=== PATIENT | male | born 1940 | race Caucasian/White ===

== ENCOUNTER → 2019-07-31 | Outpatient (CLI) | payer OTHER ==
[2019-08-01 14:38] LABS: Stool Occult Bld Immuno 1 Positive (NEGATIVE); Stool Occult Bld Immuno 2 Positive (NEGATIVE); Stool Occult Bld Immuno 3 Positive (NEGATIVE)
== END | disposition home or self-care (01) ==
LOC: LAB EV 06:20
PROVIDERS: Family Medicine
DX: D64.9 Anemia, unspecified (principal)
CPT/HCPCS: 82274

== ENCOUNTER 2019-10-19 10:00 | Inpatient (IN) | payer OTHER ==
[~2019-10-19] VITALS: Ht 170.2 cm; Wt 63.5 kg
[~2019-10-19 10:00] MED LIST: Amlodipine Bes2.5 MG PO; Aspirin EC81 MG PO; FERSU300 PO; PIOG15 PO; Prinivil10 MG PO
--- NOTE | 2019-10-19 12:07 | NUR ---
10/19/19 1207 Pablo Miller PT COUGHING. O2 SAT DROPS TO 87%. ROBINUL 0.2 MG IV GIVEN PER ORDER. SWTICHING TO NON REBREATHER MASK. O2 UP TO 15L FOR THIS. PT O2 BACK UP TO HIGH 90S.
--- NOTE | 2019-10-19 12:37 | NUR ---
10/19/19 1237 Opal Go LATE ENTRY: PT ARRIVES TO STEP COUGHING, A VERBAL ORDER WAS GIVEN FOR A DUONEB AND IT WAS GIVEN ORDERED, LUNGS PRIOR TO UDN WERE EXP. WHHEZE IN BETWEEN COUGHING. LUNGS SOUND CLEAR FOLLOWING UDN BUT PATIENT IS STILL COUGHING. WE ARE WAITING ON ROOM ASSIGNMENT NEXT DOOR DR JOSEPH IS ADMITTING THE PATIENT FOR FURTHER EVALUATION SINCE HE WAS UNABLE TO COMPLETE THE COLONOSCOPY.
--- NOTE | 2019-10-19 13:14 | NUR ---
PT ARRIVED TO THE ROOM AT APPROXIMATELY 1255. PT ALERT AND ORIENED. HE WAS ABLE TO TRANSFER HIMSELF FROM THE GURNEY TO THE BED. VSS. WILL CONTINUE TO MONITOR.
[2019-10-19 13:53] LABS: BASOPHILS ABSOLUTE AUTO 0.03 K/mm3 (0.00-0.23); BASOPHILS PERCENT AUTO 0 % (0-2); EOSINOPHILS ABSOLUTE AUTO 0.01 K/mm3 (0.00-0.68); EOSINOPHILS PERCENT AUTO 0 % (0-6); Hematocrit 35.1 % (37.0-53.0); Hemoglobin 11.2 g/dL (13.5-17.5); IMMATURE GRAN ABSOLUTE AUTO 0.04 K/mm3 (0.00-0.10); IMMATURE GRAN PERCENT AUTO 1 % (0-1); LYMPHOCYTES ABSOLUTE AUTO 2.13 K/mm3 (0.84-5.20); LYMPHOCYTES PERCENT AUTO 29 % (21-46); MONOCYTES ABSOLUTE AUTO 0.64 K/mm3 (0.16-1.47); MONOCYTES PERCENT AUTO 9 % (4-13); Mean Corpuscular HGB 32.3 pg (26.0-34.0); Mean Corpuscular HGB Conc 31.9 g/dL (31.5-36.5); Mean Corpuscular Volume 101 fL (80-100); Mean Platelet Volume 9.9 fL (9.1-12.4); NEUTROPHILS ABSOLUTE AUTO 4.49 K/mm3 (1.96-9.15); NEUTROPHILS PERCENT AUTO 61 % (41-73); Platelet Count 230 K/mm3 (150-400); RDW Coefficient Variation 13.3 % (11.7-14.2); RDW Standard Deviation 49.5 fL (35.1-46.3); Red Blood Cell Count 3.47 M/mm3 (4.30-5.90); White Blood Cell Count 7.34 K/mm3 (4.00-11.30)
--- NOTE | 2019-10-19 14:05 | NUR ---
10/19/2019 PATIENT GAVE THIS BI DEVELOPER PERMISSION TO ASSIST WITH CARE TOMORROW 10/20/2019
[2019-10-19 14:08] LABS: Bun/Creatinine Ratio 8.3 (12.0-20.0); Creatinine, Blood 1.32 mg/dL (0.60-1.20); Potassium, Blood 3.7 mmol/L (3.5-5.5)
--- NOTE | 2019-10-19 16:45 | NUR ---
assumed care of pt, recvd report from previous RN Lexi, pt resting in room, a/o x 4, reports pain at 6/10, will medicate per mar. call light within reach, bed rails up x 2, bed in lowest position
--- NOTE | 2019-10-20 01:00 | NUR ---
RECEIVED HAND OFF AND ASSUMED CARE FROM Jaspal ELLIS RN USING SBAR. PT RESTING WITH EYES CLOSED IN SEMI FOWLERS. AAO X3, [place], FOLLOWS ALL COMMANDS. PIV IS PATENT, INFUSING NS AT 75ML/HR. DENIES PAIN, DISCOMFORT, OR FURTHER NEEDS AT THIS TIME. SAFETY MEASURES IN PLACE. WILL CONTINUE TO MONITOR.
[2019-10-20 04:53] LABS: BASOPHILS ABSOLUTE AUTO 0.03 K/mm3 (0.00-0.23); BASOPHILS PERCENT AUTO 0 % (0-2); EOSINOPHILS PERCENT AUTO 0 % (0-6); Hematocrit 33.1 % (37.0-53.0); IMMATURE GRAN ABSOLUTE AUTO 0.08 K/mm3 (0.00-0.10); IMMATURE GRAN PERCENT AUTO 0 % (0-1); LYMPHOCYTES ABSOLUTE AUTO 1.51 K/mm3 (0.84-5.20); LYMPHOCYTES PERCENT AUTO 8 % (21-46); MONOCYTES PERCENT AUTO 4 % (4-13); Mean Corpuscular HGB 32.6 pg (26.0-34.0); Mean Corpuscular HGB Conc 33.2 g/dL (31.5-36.5); NEUTROPHILS ABSOLUTE AUTO 17.13 K/mm3 (1.96-9.15); NEUTROPHILS PERCENT AUTO 88 % (41-73); Platelet Count 220 K/mm3 (150-400); RDW Coefficient Variation 13.3 % (11.7-14.2); RDW Standard Deviation 48.5 fL (35.1-46.3); Red Blood Cell Count 3.37 M/mm3 (4.30-5.90); White Blood Cell Count 19.45 K/mm3 (4.00-11.30)
[2019-10-20 05:01] LABS: Mean Corpuscular Volume 98 fL (80-100)
[2019-10-20 05:13] LABS: Calcium, Blood 8.5 mg/dL (8.5-10.1); Creatinine, Blood 1.34 mg/dL (0.60-1.20); Potassium, Blood 3.8 mmol/L (3.5-5.5)
--- NOTE | 2019-10-20 06:49 | NUR ---
SHIFT SUMMARY PT RESTING WITH EYES CLOSED IN SEMI FOWLERS. AAO X3, DEL CAST[place], FOLLOWS ALL COMMANDS. PIV IS PATENT, INFUSING NS AT 75ML/HR. DENIES PAIN, DISCOMFORT, OR FURTHER NEEDS AT THIS TIME. SAFETY MEASURES IN PLACE. WILL CONTINUE TO MONITOR.
--- NOTE | 2019-10-20 18:20 | NUR ---
SHIFT SUMMARY PT HAS DONE WELL TODAY. DIET ADVANCED TO FULL LQ AND TOLERATING WELL. DENIES PAIN OR NAUSEA. UP MOVING WELL IN ROOM. HOPEFUL TO D/C TOMORROW.
[2019-10-21 04:49] LABS: BASOPHILS ABSOLUTE AUTO 0.03 K/mm3 (0.00-0.23); BASOPHILS PERCENT AUTO 0 % (0-2); EOSINOPHILS PERCENT AUTO 0 % (0-6); Hematocrit 33.7 % (37.0-53.0); IMMATURE GRAN ABSOLUTE AUTO 0.33 K/mm3 (0.00-0.10); IMMATURE GRAN PERCENT AUTO 1 % (0-1); LYMPHOCYTES ABSOLUTE AUTO 1.19 K/mm3 (0.84-5.20); LYMPHOCYTES PERCENT AUTO 5 % (21-46); MONOCYTES ABSOLUTE AUTO 0.62 K/mm3 (0.16-1.47); MONOCYTES PERCENT AUTO 3 % (4-13); Mean Corpuscular HGB 32.4 pg (26.0-34.0); Mean Corpuscular HGB Conc 32.6 g/dL (31.5-36.5); Mean Corpuscular Volume 99 fL (80-100); Mean Platelet Volume 10.2 fL (9.1-12.4); NEUTROPHILS ABSOLUTE AUTO 21.36 K/mm3 (1.96-9.15); NEUTROPHILS PERCENT AUTO 91 % (41-73); Platelet Count 213 K/mm3 (150-400); RDW Coefficient Variation 13.6 % (11.7-14.2); RDW Standard Deviation 49.7 fL (35.1-46.3); White Blood Cell Count 23.53 K/mm3 (4.00-11.30)
--- NOTE | 2019-10-21 04:57 | NUR ---
SHIFT SUMMARY PT RESTING WITH EYES OPEN IN SEMI FOWLERS. AAO X3, DEL CASTILLO, FOLLOWS ALL COMMANDS. PIV IS PATENT, DRESSING CHANGED DUE TO MILD LEAKAGE AT SITE, TOLERATED WELL DENIES PAIN, DISCOMFORT, OR FURTHER NEEDS AT THIS TIME. SAFETY MEASURES IN PLACE. WILL GIVE HAND OFF TO ONCOMING SHIFT USING SBAR.
[2019-10-21 05:07] LABS: Bun/Creatinine Ratio 14.7 (12.0-20.0); Calcium, Blood 8.8 mg/dL (8.5-10.1); Creatinine, Blood 1.29 mg/dL (0.60-1.20); Potassium, Blood 3.7 mmol/L (3.5-5.5)
[2019-10-21] MEDS ORDERED: CIPR500 PO (10:17)
[2019-10-21] MEDS ORDERED: METR500 PO (10:18)
--- NOTE | 2019-10-21 11:10 | NUR ---
1100 diwscharged home with his son
== END 2019-10-21 11:00 | disposition home or self-care (01) | DRG 395 ==
LOC: ORSCSDS 10:00 → SURS 13:16 → ORSCSDS 13:29 → SURS 13:29
PROVIDERS: Student in an Organized Health Care Education/Training Program; Surgery; ADMIT Internal Medicine
PROC: 0DBP8ZZ Excision of Rectum, Via Natural or Artificial Opening Endoscopic (ICD-10-PCS; principal; 2019-10-19 11:30)
DX: K91.81 Other intraoperative complications of digestive system (principal); E11.9 Type 2 diabetes mellitus without complications; I12.9 Hypertensive chronic kidney disease with stage 1 through stage 4 chronic kidney disease, or unspecified chronic kidney disease; D50.9 Iron deficiency anemia, unspecified; F17.210 Nicotine dependence, cigarettes, uncomplicated; K64.4 Residual hemorrhoidal skin tags; J44.9 Chronic obstructive pulmonary disease, unspecified; Y83.8 Other surgical procedures as the cause of abnormal reaction of the patient, or of later complication, without mention of misadventure at the time of the procedure; Y92.234 Operating room of hospital as the place of occurrence of the external cause; Z79.84 Long term (current) use of oral hypoglycemic drugs; Z79.82 Long term (current) use of aspirin
CPT/HCPCS: 36415; 74177; 80048; 82947; 85025; 88305; 96365; 96366; 96367; 96375; 96376; G0378; J0744; J2405; J2704; J3010; J7030; J7040; J7120; Q9967

== ENCOUNTER 2019-10-23 10:52 | Inpatient (IN) | payer OTHER ==
[~2019-10-23] VITALS: Ht 167.6 cm; Wt 62.6 kg
[~2019-10-23 10:52] MED LIST changes: +CIPR500 PO; +METR500 PO
[2019-10-23 12:13] LABS: BASOPHILS ABSOLUTE AUTO 0.02 K/mm3 (0.00-0.23); BASOPHILS PERCENT AUTO 0 % (0-2); EOSINOPHILS PERCENT AUTO 0 % (0-6); Hematocrit 35.1 % (37.0-53.0); Hemoglobin 11.8 g/dL (13.5-17.5); IMMATURE GRAN ABSOLUTE AUTO 0.14 K/mm3 (0.00-0.10); IMMATURE GRAN PERCENT AUTO 1 % (0-1); LYMPHOCYTES ABSOLUTE AUTO 0.84 K/mm3 (0.84-5.20); LYMPHOCYTES PERCENT AUTO 4 % (21-46); MONOCYTES ABSOLUTE AUTO 0.95 K/mm3 (0.16-1.47); MONOCYTES PERCENT AUTO 5 % (4-13); Mean Corpuscular HGB 32.7 pg (26.0-34.0); Mean Corpuscular HGB Conc 33.6 g/dL (31.5-36.5); Mean Corpuscular Volume 97 fL (80-100); Mean Platelet Volume 10.2 fL (9.1-12.4); NEUTROPHILS ABSOLUTE AUTO 17.74 K/mm3 (1.96-9.15); NEUTROPHILS PERCENT AUTO 90 % (41-73); Platelet Count 238 K/mm3 (150-400); RDW Coefficient Variation 13.5 % (11.7-14.2); RDW Standard Deviation 48.2 fL (35.1-46.3); Red Blood Cell Count 3.61 M/mm3 (4.30-5.90); White Blood Cell Count 19.69 K/mm3 (4.00-11.30)
[2019-10-23 12:30] LABS: Albumin, Blood 2.6 g/dL (3.4-5.0); Albumin/Globulin Ratio 0.7 (0.8-1.8); Bilirubin, Total 0.3 mg/dL (0.1-1.0); Bun/Creatinine Ratio 23.7 (12.0-20.0); Calcium, Blood 9.4 mg/dL (8.5-10.1); Creatinine, Blood 1.39 mg/dL (0.60-1.20); Globulin, Blood 3.9 g/dL (2.2-4.0); Potassium, Blood 3.8 mmol/L (3.5-5.5); Total Protein, Blood 6.5 g/dL (6.4-8.2)
[2019-10-23] MEDS ORDERED: AMLODIPINE BES2.5 MG PO (13:42)
[2019-10-23] MEDS ORDERED: PRINIVIL10 MG PO (13:42)
[2019-10-23] MEDS ORDERED: LISI20 PO (13:42)
[2019-10-24 04:10] LABS: BASOPHILS ABSOLUTE AUTO 0.02 K/mm3 (0.00-0.23); BASOPHILS PERCENT AUTO 0 % (0-2); EOSINOPHILS ABSOLUTE AUTO 0.01 K/mm3 (0.00-0.68); EOSINOPHILS PERCENT AUTO 0 % (0-6); Hematocrit 32.7 % (37.0-53.0); Hemoglobin 10.6 g/dL (13.5-17.5); IMMATURE GRAN ABSOLUTE AUTO 0.12 K/mm3 (0.00-0.10); IMMATURE GRAN PERCENT AUTO 1 % (0-1); LYMPHOCYTES ABSOLUTE AUTO 1.22 K/mm3 (0.84-5.20); LYMPHOCYTES PERCENT AUTO 10 % (21-46); MONOCYTES ABSOLUTE AUTO 0.93 K/mm3 (0.16-1.47); MONOCYTES PERCENT AUTO 7 % (4-13); Mean Corpuscular HGB 31.7 pg (26.0-34.0); Mean Corpuscular HGB Conc 32.4 g/dL (31.5-36.5); Mean Corpuscular Volume 98 fL (80-100); Mean Platelet Volume 9.6 fL (9.1-12.4); NEUTROPHILS PERCENT AUTO 82 % (41-73); Platelet Count 228 K/mm3 (150-400); RDW Coefficient Variation 13.7 % (11.7-14.2); Red Blood Cell Count 3.34 M/mm3 (4.30-5.90)
--- NOTE | 2019-10-24 04:11 | NUR ---
SHIFT SUMMARY PT AA0X4 VSS. PT DENIES NAUSEA AND PAIN. NG TUBE DRAINING GREEN BROWN LIQUID. PT IND/SBY. IS UP AND VOIDING. PT HAS BEEN NPO SINCE MIDNIGHT, HYPOACTIVE BOWEL SOUNDS. PT CALLING APPROPRIATLY, CALL LIGHT IN REACH.
[2019-10-24 04:28] LABS: Bun/Creatinine Ratio 20.6 (12.0-20.0); Calcium, Blood 8.3 mg/dL (8.5-10.1); Creatinine, Blood 1.31 mg/dL (0.60-1.20); Potassium, Blood 3.4 mmol/L (3.5-5.5)
--- NOTE | 2019-10-24 15:12 | NUR ---
SHIFT SUMMARY PT HAS BEEN SLEEPY TODAY BUT DOES WELL AMBULATING WITH ASSISTANCE IN HALLWAYS. NGT CONTINUES TO HAVE MODERATE OUTPUT, GREEN. NO FLATUS OR BMS.
[2019-10-25 04:12] LABS: BASOPHILS ABSOLUTE AUTO 0.04 K/mm3 (0.00-0.23); BASOPHILS PERCENT AUTO 0 % (0-2); EOSINOPHILS ABSOLUTE AUTO 0.02 K/mm3 (0.00-0.68); EOSINOPHILS PERCENT AUTO 0 % (0-6); Hematocrit 34.5 % (37.0-53.0); Hemoglobin 11.1 g/dL (13.5-17.5); IMMATURE GRAN ABSOLUTE AUTO 0.18 K/mm3 (0.00-0.10); IMMATURE GRAN PERCENT AUTO 2 % (0-1); LYMPHOCYTES ABSOLUTE AUTO 1.73 K/mm3 (0.84-5.20); LYMPHOCYTES PERCENT AUTO 15 % (21-46); MONOCYTES ABSOLUTE AUTO 1.08 K/mm3 (0.16-1.47); MONOCYTES PERCENT AUTO 9 % (4-13); Mean Corpuscular HGB 31.9 pg (26.0-34.0); Mean Corpuscular HGB Conc 32.2 g/dL (31.5-36.5); Mean Corpuscular Volume 99 fL (80-100); Mean Platelet Volume 10.4 fL (9.1-12.4); NEUTROPHILS ABSOLUTE AUTO 8.92 K/mm3 (1.96-9.15); NEUTROPHILS PERCENT AUTO 75 % (41-73); Platelet Count 253 K/mm3 (150-400); RDW Coefficient Variation 13.8 % (11.7-14.2); RDW Standard Deviation 50.6 fL (35.1-46.3); Red Blood Cell Count 3.48 M/mm3 (4.30-5.90); White Blood Cell Count 11.97 K/mm3 (4.00-11.30)
--- NOTE | 2019-10-25 04:35 | NUR ---
SHIFT SUMMARY AA0X4 VSS, PT DENIED PAIN AND NAUSEA DURING SHIFT. PT USING URINAL TO VOID. DENIES PASSING FLATUS. NG TUBE PATENT AND DRAINING GREEN LIQUID. IV FLUIDS INFUSING DURING SHIFT.
[2019-10-25 04:37] LABS: Magnesium, Blood 1.9 mg/dL (1.6-2.4)
[2019-10-25 04:38] LABS: Anion Gap 4 mmol/L (6-16); Blood Urea Nitrogen 17 mg/dL (8-24); Bun/Creatinine Ratio 14.3 (12.0-20.0); CO2, Blood 31 mmol/L (21-32); Calcium, Blood 8.3 mg/dL (8.5-10.1); Chloride, Blood 107 mmol/L (98-108); Creatinine, Blood 1.19 mg/dL (0.60-1.20); Glomerular Filtration Rate >60 (60-); Glucose, Blood 137 mg/dL (70-99); Phosphorus, Blood 1.7 mg/dL (2.5-4.9); Potassium, Blood 3.5 mmol/L (3.5-5.5); Sodium, Blood 142 mmol/L (136-145)
--- NOTE | 2019-10-25 08:37 | NUR ---
OOB TO CHAIR, DENIES ANY PAIN OR NAUSEA, NGT INTACT CONT. TO DRAIN BRIGHT GREEN DRAINAGE, DR. WETZEL HERE TO SEE PT, PT GOING TO XRAY.
--- NOTE | 2019-10-25 19:15 | NUR ---
RESTING IN BED, DENIED ANY PAIN OR NAUSEA OR ANY ABD DISCOMFORT TODAY, NO ACUTE CHANGES THIS SHIFT.
[2019-10-26 04:05] LABS: BASOPHILS ABSOLUTE AUTO 0.03 K/mm3 (0.00-0.23); BASOPHILS PERCENT AUTO 0 % (0-2); EOSINOPHILS ABSOLUTE AUTO 0.04 K/mm3 (0.00-0.68); EOSINOPHILS PERCENT AUTO 0 % (0-6); Hemoglobin 11.2 g/dL (13.5-17.5); IMMATURE GRAN ABSOLUTE AUTO 0.19 K/mm3 (0.00-0.10); IMMATURE GRAN PERCENT AUTO 2 % (0-1); LYMPHOCYTES ABSOLUTE AUTO 2.14 K/mm3 (0.84-5.20); LYMPHOCYTES PERCENT AUTO 20 % (21-46); MONOCYTES ABSOLUTE AUTO 1.13 K/mm3 (0.16-1.47); MONOCYTES PERCENT AUTO 10 % (4-13); Mean Corpuscular HGB 32.2 pg (26.0-34.0); Mean Corpuscular HGB Conc 32.9 g/dL (31.5-36.5); Mean Corpuscular Volume 98 fL (80-100); Mean Platelet Volume 9.5 fL (9.1-12.4); NEUTROPHILS ABSOLUTE AUTO 7.45 K/mm3 (1.96-9.15); NEUTROPHILS PERCENT AUTO 68 % (41-73); Platelet Count 248 K/mm3 (150-400); RDW Coefficient Variation 13.8 % (11.7-14.2); RDW Standard Deviation 49.9 fL (35.1-46.3); Red Blood Cell Count 3.48 M/mm3 (4.30-5.90); White Blood Cell Count 10.98 K/mm3 (4.00-11.30)
[2019-10-26 04:20] LABS: Anion Gap 3 mmol/L (6-16); Blood Urea Nitrogen 18 mg/dL (8-24); Bun/Creatinine Ratio 15.4 (12.0-20.0); CO2, Blood 32 mmol/L (21-32); Calcium, Blood 8.3 mg/dL (8.5-10.1); Chloride, Blood 106 mmol/L (98-108); Creatinine, Blood 1.17 mg/dL (0.60-1.20); Glomerular Filtration Rate >60 (60-); Glucose, Blood 128 mg/dL (70-99); Phosphorus, Blood 3.1 mg/dL (2.5-4.9); Potassium, Blood 3.6 mmol/L (3.5-5.5); Sodium, Blood 141 mmol/L (136-145)
--- NOTE | 2019-10-26 06:07 | NUR ---
PT OUT TO RADIOLOGY. NO C/O NAUSEA.NG CAPPED FOR TRANSPORT.IV SL FOR TRANSPORT WITH GOOD BLOOD RETURN.
--- NOTE | 2019-10-27 06:11 | NUR ---
PT TO XRAY VIA WHEELCHAIR
[2019-10-27 06:17] LABS: BASOPHILS ABSOLUTE AUTO 0.04 K/mm3 (0.00-0.23); BASOPHILS PERCENT AUTO 0 % (0-2); EOSINOPHILS ABSOLUTE AUTO 0.01 K/mm3 (0.00-0.68); EOSINOPHILS PERCENT AUTO 0 % (0-6); Hematocrit 37.4 % (37.0-53.0); Hemoglobin 12.1 g/dL (13.5-17.5); IMMATURE GRAN ABSOLUTE AUTO 0.19 K/mm3 (0.00-0.10); IMMATURE GRAN PERCENT AUTO 2 % (0-1); LYMPHOCYTES ABSOLUTE AUTO 1.64 K/mm3 (0.84-5.20); LYMPHOCYTES PERCENT AUTO 16 % (21-46); MONOCYTES ABSOLUTE AUTO 0.98 K/mm3 (0.16-1.47); MONOCYTES PERCENT AUTO 10 % (4-13); Mean Corpuscular HGB 31.5 pg (26.0-34.0); Mean Corpuscular HGB Conc 32.4 g/dL (31.5-36.5); Mean Corpuscular Volume 97 fL (80-100); Mean Platelet Volume 10.3 fL (9.1-12.4); NEUTROPHILS ABSOLUTE AUTO 7.32 K/mm3 (1.96-9.15); NEUTROPHILS PERCENT AUTO 72 % (41-73); Platelet Count 320 K/mm3 (150-400); RDW Coefficient Variation 13.8 % (11.7-14.2); RDW Standard Deviation 48.9 fL (35.1-46.3); Red Blood Cell Count 3.84 M/mm3 (4.30-5.90); White Blood Cell Count 10.18 K/mm3 (4.00-11.30)
--- NOTE | 2019-10-27 06:20 | NUR ---
SHIFT SUMMARY NG IN PLACE AND DRAINING GREEN FLUID. PT HAD 2 EPISODES OF N/V AND ONE LOOSE BM DURING SHIFT. AMBULATED TO BATHROOM TWICE WITH SBA, USES URINAL PRN. DENIED PAIN OR DISCOMFORT T/O NIGHT. XRAY COMPLETED. ENCOURAGED DEEP BREATHING, COUGHING. IS CURRENTLY RESTING IN BED WITH CALL LIGHT IN REACH. WILL CONT. MONITOR AND GIVE BEDSIDE REPORT TO ONCOMING RN.
[2019-10-27 06:41] LABS: Bun/Creatinine Ratio 22.1 (12.0-20.0); Creatinine, Blood 1.4 mg/dL (0.60-1.20); Potassium, Blood 3.8 mmol/L (3.5-5.5)
--- NOTE | 2019-10-27 12:20 | NUR ---
PT NG CLAMPED, IV ABX PAUSED, PT UP TO WC AND TO IMAGING DEPT FOR CT.
--- NOTE | 2019-10-27 14:38 | NUR ---
PATIENT GAVE PERMISSION TO THIS STUDENT TO PROVIDE CARE TODAY
--- NOTE | 2019-10-27 14:42 | NUR ---
Permission for care given to skilled nursing facilities professional by timothy 10/27/2019.
--- NOTE | 2019-10-27 15:48 | NUR ---
SHIFT SUMMARY PT LEFT ROOM TO GO TO OR AT 1430. A&OX4, VSS, NG TUBE DRAINING GREEN FLUID, 1900 MLS OUT THIS SHIFT. 18G IV, CLINIMIX AND SCHEDULED ABX. AMB INDEPENDENT TO BRP ONCE UNHOOKED FROM IV & NG. WILL REPORT TO ONCOMING NOC RN.
--- NOTE | 2019-10-27 16:29 | NUR ---
Patient up to Ambulate independently. Gait steady. Surgical site prepped with 2% Chlorhexidine cloth wipe. History, Chart, Medications and Allergies reviewed before start of procedure.Lungs WITH EXPIRATORY WHEEZES. PT DOES NOT FEEL SOB. O2SATS WNL. Patient confirms NPO status and agrees with scheduled surgery. SON MISAEL AT BEDSIDE. WILL ASK ANESTHESIA FOR UDN TX. ABX RECEIVED FROM SURG FLOOR. REPORT GIVEN TO MATTHIAS QUIJANO RN.
--- NOTE | 2019-10-27 20:27 | NUR ---
TRANSFER FROM PCU: REPORT WAS RECIEVED AND PATIENT IS BROUGHT TO UNIT VIA STRETCHER. A&O X4 VS ARE STABLE, NO REPORTS OF PAIN.
[2019-10-28 05:26] LABS: BASOPHILS ABSOLUTE AUTO 0.05 K/mm3 (0.00-0.23); BASOPHILS PERCENT AUTO 0 % (0-2); EOSINOPHILS ABSOLUTE AUTO 0.01 K/mm3 (0.00-0.68); EOSINOPHILS PERCENT AUTO 0 % (0-6); Hematocrit 34.3 % (37.0-53.0); Hemoglobin 11.2 g/dL (13.5-17.5); IMMATURE GRAN ABSOLUTE AUTO 0.15 K/mm3 (0.00-0.10); IMMATURE GRAN PERCENT AUTO 1 % (0-1); LYMPHOCYTES ABSOLUTE AUTO 1.48 K/mm3 (0.84-5.20); LYMPHOCYTES PERCENT AUTO 10 % (21-46); MONOCYTES ABSOLUTE AUTO 0.82 K/mm3 (0.16-1.47); MONOCYTES PERCENT AUTO 6 % (4-13); Mean Corpuscular HGB 32.4 pg (26.0-34.0); Mean Corpuscular HGB Conc 32.7 g/dL (31.5-36.5); Mean Corpuscular Volume 99 fL (80-100); Mean Platelet Volume 10.4 fL (9.1-12.4); NEUTROPHILS ABSOLUTE AUTO 12.27 K/mm3 (1.96-9.15); NEUTROPHILS PERCENT AUTO 83 % (41-73); Platelet Count 332 K/mm3 (150-400); RDW Coefficient Variation 14.1 % (11.7-14.2); RDW Standard Deviation 51.5 fL (35.1-46.3); Red Blood Cell Count 3.46 M/mm3 (4.30-5.90); White Blood Cell Count 14.78 K/mm3 (4.00-11.30)
--- NOTE | 2019-10-28 05:45 | NUR ---
SHIFT SUMMARY: PATIENT IS A&OX4, POST OP VS ARE STABLE, 1L 02 IS ON TO MAINTAIN SATS ABOVE 90%. PAIN IS MINIMAL AND WELL CONTROLED WITH ONE DOSE OF IV DILAUDID. NG PUT OUT 40MLS OF A GREEN DRAINAGE. PATIENT IS ABLE TO STAND AT THE BEDSIDE TO VOID WITH ASSIST OF TWO FOR SAFETY, BED ALARM IS ON.
[2019-10-28 05:52] LABS: Bun/Creatinine Ratio 23.7 (12.0-20.0); Calcium, Blood 8.1 mg/dL (8.5-10.1); Creatinine, Blood 1.56 mg/dL (0.60-1.20); Potassium, Blood 3.7 mmol/L (3.5-5.5)
--- NOTE | 2019-10-28 11:38 | NUR ---
10/28/19 1138 Nellie Osorio VERIFICATIONS, AUDITS.
--- NOTE | 2019-10-28 14:00 | NUR ---
Permission for care given to clinical nursing intern by patient.
--- NOTE | 2019-10-28 19:35 | NUR ---
SUMMARY: PT IS POD1 LYSIS OF ADHESIONS. NO ACUTE CHANGE TODAY. NGT TO LIS, MINIMAL OUT. DENIES PASSING GAS, NO BM. NO COMPLAINT FOR PAIN/NAUSEA TODAY. SURGICAL SITES WNL, MINIMAL DRAINAGE FROM STEW. NO ACUTE SAFETY CONCERNS, WILL REPORT TO NOC RN
--- NOTE | 2019-10-29 04:36 | NUR ---
SHIFT SUMMARY POD 2. AA0X4, VSS. PT DENIES PASSING GAS. NG TUBE PATENT AND DRAINING BROWN LIQUID. STEW PATENT AND DRAINING SS DRAINAGE. GAUZE IN PLACE CDI. DENIES PAIN AND NAUSEA DURING SHIFT. PT APPEARED MORE WITHDRAWN DURING SHIFT, PT FAMILY REPORTED WELL. TOLERATING ICE CHIPS DURING SHIFT.
[2019-10-29 05:04] LABS: BASOPHILS ABSOLUTE AUTO 0.02 K/mm3 (0.00-0.23); BASOPHILS PERCENT AUTO 0 % (0-2); EOSINOPHILS ABSOLUTE AUTO 0.06 K/mm3 (0.00-0.68); EOSINOPHILS PERCENT AUTO 1 % (0-6); Hemoglobin 10.5 g/dL (13.5-17.5); IMMATURE GRAN ABSOLUTE AUTO 0.06 K/mm3 (0.00-0.10); IMMATURE GRAN PERCENT AUTO 1 % (0-1); LYMPHOCYTES ABSOLUTE AUTO 1.28 K/mm3 (0.84-5.20); LYMPHOCYTES PERCENT AUTO 15 % (21-46); MONOCYTES ABSOLUTE AUTO 0.71 K/mm3 (0.16-1.47); MONOCYTES PERCENT AUTO 8 % (4-13); Mean Corpuscular HGB 31.7 pg (26.0-34.0); Mean Corpuscular HGB Conc 31.8 g/dL (31.5-36.5); Mean Corpuscular Volume 100 fL (80-100); NEUTROPHILS ABSOLUTE AUTO 6.28 K/mm3 (1.96-9.15); NEUTROPHILS PERCENT AUTO 75 % (41-73); Platelet Count 304 K/mm3 (150-400); RDW Coefficient Variation 13.9 % (11.7-14.2); Red Blood Cell Count 3.31 M/mm3 (4.30-5.90); White Blood Cell Count 8.41 K/mm3 (4.00-11.30)
[2019-10-29 05:31] LABS: Albumin, Blood 1.8 g/dL (3.4-5.0); Anion Gap 4 mmol/L (6-16); Blood Urea Nitrogen 33 mg/dL (8-24); Bun/Creatinine Ratio 23.6 (12.0-20.0); CO2, Blood 31 mmol/L (21-32); Calcium, Blood 8.1 mg/dL (8.5-10.1); Chloride, Blood 108 mmol/L (98-108); Glomerular Filtration Rate 52 (60-); Glucose, Blood 120 mg/dL (70-99); Magnesium, Blood 2.3 mg/dL (1.6-2.4); Phosphorus, Blood 2.5 mg/dL (2.5-4.9); Potassium, Blood 3.9 mmol/L (3.5-5.5); Sodium, Blood 143 mmol/L (136-145)
--- NOTE | 2019-10-29 07:56 | NUR ---
PT REFUSED TO GET UP TO THE CHAIR AT THIS TIME
--- NOTE | 2019-10-29 19:27 | NUR ---
SUMMARY: NO CHANGE TODAY. MINIMAL OUT OF STEW AND NGT. PT IN BETTER SPIRITS TODAY. ABLE TO TAKE 3 WALKS IN BERNAL, SBA WITH FWW. PT DID WELL. NO COMPLIANT OF PAIN OR NAUSEA. NO REPORT OF GAS OR BM. REPORT GIVEN TO LU HASTINGS RN.
[2019-10-30 05:02] LABS: BASOPHILS ABSOLUTE AUTO 0.02 K/mm3 (0.00-0.23); BASOPHILS PERCENT AUTO 0 % (0-2); EOSINOPHILS ABSOLUTE AUTO 0.06 K/mm3 (0.00-0.68); EOSINOPHILS PERCENT AUTO 0 % (0-6); Hematocrit 33.9 % (37.0-53.0); Hemoglobin 10.9 g/dL (13.5-17.5); IMMATURE GRAN ABSOLUTE AUTO 0.11 K/mm3 (0.00-0.10); IMMATURE GRAN PERCENT AUTO 1 % (0-1); LYMPHOCYTES ABSOLUTE AUTO 1.39 K/mm3 (0.84-5.20); LYMPHOCYTES PERCENT AUTO 10 % (21-46); MONOCYTES ABSOLUTE AUTO 1.02 K/mm3 (0.16-1.47); MONOCYTES PERCENT AUTO 8 % (4-13); Mean Corpuscular HGB 31.6 pg (26.0-34.0); Mean Corpuscular HGB Conc 32.2 g/dL (31.5-36.5); Mean Corpuscular Volume 98 fL (80-100); Mean Platelet Volume 10.3 fL (9.1-12.4); NEUTROPHILS ABSOLUTE AUTO 10.85 K/mm3 (1.96-9.15); NEUTROPHILS PERCENT AUTO 81 % (41-73); Platelet Count 319 K/mm3 (150-400); RDW Coefficient Variation 13.8 % (11.7-14.2); RDW Standard Deviation 49.9 fL (35.1-46.3); Red Blood Cell Count 3.45 M/mm3 (4.30-5.90); White Blood Cell Count 13.45 K/mm3 (4.00-11.30)
--- NOTE | 2019-10-30 05:22 | NUR ---
SHIFT SUMMARY POD 3 AA0X4, VSS. SITES ARE CDI, STEW DRAIN PINK SANGUINOUS DRAINAGE. BULB COMPRESSED. PT HAS BEEN PASSING GAS SINCE MIDNIGHT AND HAS HAD 2 EXTRA LARGE LOOSE STOOLS. PT IND/SBY IN ROOM. DENIES PAIN AND NAUSEA. NG TUBE HAS HAD NO OUTPUT, BALANCED WITH ICE CHIPS HE HAS TAKEN IN. PT VOIDING IN URINAL.
[2019-10-30 05:33] LABS: Albumin, Blood 1.9 g/dL (3.4-5.0); Anion Gap 4 mmol/L (6-16); Blood Urea Nitrogen 35 mg/dL (8-24); Bun/Creatinine Ratio 24.6 (12.0-20.0); CO2, Blood 29 mmol/L (21-32); Calcium, Blood 8.4 mg/dL (8.5-10.1); Chloride, Blood 107 mmol/L (98-108); Creatinine, Blood 1.42 mg/dL (0.60-1.20); Glomerular Filtration Rate 51 (60-); Glucose, Blood 130 mg/dL (70-99); Phosphorus, Blood 2.6 mg/dL (2.5-4.9); Potassium, Blood 3.9 mmol/L (3.5-5.5); Sodium, Blood 140 mmol/L (136-145)
--- NOTE | 2019-10-30 18:07 | NUR ---
SUMMARY PATIENT HAS DENIED NEED FOR PAIN MED THIS SHIFT. PT AMBULATING IN ROOM AND HALLWAY-STEADY ON FEET. STEW WITH FAINT PINK TINGED DRAINAGE. PT JOANNA CLEAR LIQUID WITHOUT NAUSEA. PATIENT HAS HAD LIQUID DK GREEN/BROWN STOOLS
[2019-10-31 04:45] LABS: BASOPHILS ABSOLUTE AUTO 0.03 K/mm3 (0.00-0.23); BASOPHILS PERCENT AUTO 0 % (0-2); EOSINOPHILS ABSOLUTE AUTO 0.07 K/mm3 (0.00-0.68); EOSINOPHILS PERCENT AUTO 1 % (0-6); Hematocrit 33.3 % (37.0-53.0); Hemoglobin 10.7 g/dL (13.5-17.5); IMMATURE GRAN ABSOLUTE AUTO 0.11 K/mm3 (0.00-0.10); IMMATURE GRAN PERCENT AUTO 1 % (0-1); LYMPHOCYTES ABSOLUTE AUTO 1.52 K/mm3 (0.84-5.20); LYMPHOCYTES PERCENT AUTO 13 % (21-46); MONOCYTES ABSOLUTE AUTO 1.05 K/mm3 (0.16-1.47); MONOCYTES PERCENT AUTO 9 % (4-13); Mean Corpuscular HGB 31.6 pg (26.0-34.0); Mean Corpuscular HGB Conc 32.1 g/dL (31.5-36.5); Mean Corpuscular Volume 98 fL (80-100); Mean Platelet Volume 10.4 fL (9.1-12.4); NEUTROPHILS ABSOLUTE AUTO 9.27 K/mm3 (1.96-9.15); NEUTROPHILS PERCENT AUTO 77 % (41-73); Platelet Count 314 K/mm3 (150-400); RDW Coefficient Variation 13.7 % (11.7-14.2); RDW Standard Deviation 50.5 fL (35.1-46.3); Red Blood Cell Count 3.39 M/mm3 (4.30-5.90); White Blood Cell Count 12.05 K/mm3 (4.00-11.30)
--- NOTE | 2019-10-31 04:59 | NUR ---
Patient is independent in the room. voiding, drinking, passing gas. abd is soft with mild destention, Peg tube is draining serous fluid. dressings are dry with minimal amounts of old drainage. no acute changes over the shift. patient stated that he did sleep 2-4 hours at a time.
[2019-10-31 05:05] LABS: Bun/Creatinine Ratio 20.4 (12.0-20.0); Calcium, Blood 8.5 mg/dL (8.5-10.1); Creatinine, Blood 1.62 mg/dL (0.60-1.20); Potassium, Blood 3.6 mmol/L (3.5-5.5)
--- NOTE | 2019-10-31 16:10 | NUR ---
SHIFT SUMMARY PT A&OX4, VSS, POD3 LAP/CLAUDIA/STEW L SIDE W/SEROUS DRAINAGE. DENIES PAIN. DENIES N&V, JOANNA REGULAR ADULT DIET. AMBULATION W/GB & SBA IN ROOM TO BRP, UP IN HALLWAY, UP TO CHAIR FOR MEALS. TCDB & I.S. EDU & ENC, PT DEMONSTRATED, LUNGS CLEAR. VOIDING WELL, BM X1 TODAY. IV ABX SCHEDULED PER EMAR. WILL REPORT TO ONCOMING NOC RN.
--- NOTE | 2019-11-01 04:57 | NUR ---
Patient wakes easily and felt that he slept well. He is passing gas, voiding and eating. independent in the room. quan drain in place with scant amount of serous fluid. no acute changes.
[2019-11-01 10:36] LABS: BASOPHILS ABSOLUTE AUTO 0.03 K/mm3 (0.00-0.23); BASOPHILS PERCENT AUTO 0 % (0-2); EOSINOPHILS ABSOLUTE AUTO 0.03 K/mm3 (0.00-0.68); EOSINOPHILS PERCENT AUTO 0 % (0-6); Hematocrit 35.8 % (37.0-53.0); Hemoglobin 11.5 g/dL (13.5-17.5); IMMATURE GRAN ABSOLUTE AUTO 0.15 K/mm3 (0.00-0.10); IMMATURE GRAN PERCENT AUTO 1 % (0-1); LYMPHOCYTES ABSOLUTE AUTO 1.91 K/mm3 (0.84-5.20); LYMPHOCYTES PERCENT AUTO 12 % (21-46); MONOCYTES ABSOLUTE AUTO 0.72 K/mm3 (0.16-1.47); MONOCYTES PERCENT AUTO 5 % (4-13); Mean Corpuscular HGB 32.1 pg (26.0-34.0); Mean Corpuscular HGB Conc 32.1 g/dL (31.5-36.5); Mean Corpuscular Volume 100 fL (80-100); Mean Platelet Volume 10.4 fL (9.1-12.4); NEUTROPHILS ABSOLUTE AUTO 12.89 K/mm3 (1.96-9.15); NEUTROPHILS PERCENT AUTO 82 % (41-73); Platelet Count 430 K/mm3 (150-400); RDW Coefficient Variation 13.6 % (11.7-14.2); RDW Standard Deviation 50.4 fL (35.1-46.3); Red Blood Cell Count 3.58 M/mm3 (4.30-5.90); White Blood Cell Count 15.73 K/mm3 (4.00-11.30)
[2019-11-01 10:56] LABS: Bun/Creatinine Ratio 19.9 (12.0-20.0); Calcium, Blood 8.7 mg/dL (8.5-10.1); Creatinine, Blood 1.61 mg/dL (0.60-1.20); Potassium, Blood 2.8 mmol/L (3.5-5.5)
--- NOTE | 2019-11-01 16:05 | NUR ---
SHIFT SUMMARY PT A&OX4, VSS, POD5 LAP CLAUDIA W/STEW - SM AMT SEROUS DRAINAGE. ABX ZOSYN INFUSING PER EMAR ORDERS; KCL INFUSING 100 MLS/HR W/LABS TO FOLLOW IN AM. VOIDING WELL. THREE BM'S THIS SHIFT. AMBULATING IN HALLWAY WITH 1 SBA & GB, INDEPENDENT TO BRP, UP TO CHAIR FOR MEALS. DENIES PAIN. JOANNA REG ADULT DIET W/O C/O N&V. WILL REPORT TO ONCOMING LU LLANOS.
[2019-11-02 04:21] LABS: BASOPHILS ABSOLUTE AUTO 0.04 K/mm3 (0.00-0.23); BASOPHILS PERCENT AUTO 0 % (0-2); EOSINOPHILS ABSOLUTE AUTO 0.07 K/mm3 (0.00-0.68); EOSINOPHILS PERCENT AUTO 1 % (0-6); Hematocrit 30.2 % (37.0-53.0); Hemoglobin 9.7 g/dL (13.5-17.5); IMMATURE GRAN ABSOLUTE AUTO 0.09 K/mm3 (0.00-0.10); IMMATURE GRAN PERCENT AUTO 1 % (0-1); LYMPHOCYTES ABSOLUTE AUTO 2.14 K/mm3 (0.84-5.20); LYMPHOCYTES PERCENT AUTO 14 % (21-46); MONOCYTES ABSOLUTE AUTO 0.83 K/mm3 (0.16-1.47); MONOCYTES PERCENT AUTO 5 % (4-13); Mean Corpuscular HGB 31.7 pg (26.0-34.0); Mean Corpuscular HGB Conc 32.1 g/dL (31.5-36.5); Mean Corpuscular Volume 99 fL (80-100); Mean Platelet Volume 10.6 fL (9.1-12.4); NEUTROPHILS ABSOLUTE AUTO 12.24 K/mm3 (1.96-9.15); NEUTROPHILS PERCENT AUTO 79 % (41-73); Platelet Count 394 K/mm3 (150-400); RDW Coefficient Variation 13.7 % (11.7-14.2); RDW Standard Deviation 49.8 fL (35.1-46.3); Red Blood Cell Count 3.06 M/mm3 (4.30-5.90); White Blood Cell Count 15.41 K/mm3 (4.00-11.30)
[2019-11-02 04:37] LABS: Bun/Creatinine Ratio 15.2 (12.0-20.0); Calcium, Blood 8.3 mg/dL (8.5-10.1); Creatinine, Blood 1.51 mg/dL (0.60-1.20); Magnesium, Blood 1.9 mg/dL (1.6-2.4); Potassium, Blood 3.8 mmol/L (3.5-5.5)
--- NOTE | 2019-11-02 05:01 | NUR ---
SHIFT SUMMARY: CHRISTIAN RESTED INTERMITTENTLY DURING THE NIGHT. HE DID HAVE A BOWEL MOVEMENT EARLY THIS MORNING THAT WAS VERY SOFT AND DARK BROWN. HE IS TOLERATING PO INTAKE WELL. HE IS INDEPENDENT IN THE ROOM. HE IS ABLE TO MAKE HIS NEEDS KNOWN. HE USES HIS CALL LIGHT APPROPRIATELY. IV TO LEFT UPPER ARM PATENT, FLUIDS INFUSING. WILL REPORT TO DAY SHIFT RN.
[2019-11-02] MEDS ORDERED: Cipro250 MG PO (14:14)
[2019-11-02] MEDS ORDERED: METR500 PO (14:15)
== END 2019-11-02 14:55 | disposition home or self-care (01) | DRG 344 ==
LOC: ER 10:52 → SURS 10:53
PROVIDERS: Emergency Medicine; Family Medicine; Internal Medicine; Student in an Organized Health Care Education/Training Program; Surgery; ADMIT Internal Medicine Endocrinology, Diabetes & Metabolism
PROC: 0D9N40Z Drainage of Sigmoid Colon with Drainage Device, Percutaneous Endoscopic Approach (ICD-10-PCS; principal; 2019-10-27 15:00)
DX: K91.89 Other postprocedural complications and disorders of digestive system (principal); K65.1 Peritoneal abscess; K63.1 Perforation of intestine (nontraumatic); K56.609 Unspecified intestinal obstruction, unspecified as to partial versus complete obstruction; R64 Cachexia; Z79.82 Long term (current) use of aspirin; Z68.21 Body mass index [BMI] 21.0-21.9, adult; N18.3 Chronic kidney disease, stage 3 (moderate); E11.22 Type 2 diabetes mellitus with diabetic chronic kidney disease; I12.9 Hypertensive chronic kidney disease with stage 1 through stage 4 chronic kidney disease, or unspecified chronic kidney disease; J84.10 Pulmonary fibrosis, unspecified; F17.210 Nicotine dependence, cigarettes, uncomplicated; J44.9 Chronic obstructive pulmonary disease, unspecified; E86.0 Dehydration; E87.6 Hypokalemia
CPT/HCPCS: 36415; 71046; 74019; 74176; 74177; 74250; 80048; 80053; 80069; 82947; 83690; 83735; 84100; 85025; 93005; 93010; 94640; 94760; 96361; 96365-59; 96375; 97110; 97161; 99285-25; J1170; J1650; J2370; J2405; J2543; J2704; J3010; J3480; J7030; J7060; J7120; Q9967

== ENCOUNTER → 2020-02-19 | Outpatient (CLI) | payer OTHER ==
[~2020-02-19] MED LIST changes: +AMLODIPINE BES2.5 MG PO; +Cipro250 MG PO; +LISI20 PO; +PRINIVIL10 MG PO
[2020-02-19 16:04] LABS: Adenovirus F 40/41 Not Detected (NOT DETECT); Astrovirus Not Detected (NOT DETECT); Campylobacter Sp Not Detected (NOT DETECT); Cryptosporidium Not Detected (NOT DETECT); Cyclospora Cayetanensis Not Detected (NOT DETECT); E. Coli O157 Not Detected (NOT DETECT); Entamoeba Histolytica Not Detected (NOT DETECT); Enteroaggregative E. coli-EAEC Not Detected (NOT DETECT); Enteropathogenic E. coli-EPEC Not Detected (NOT DETECT); Enterotoxigenic E. coli-ETEC Not Detected (NOT DETECT); Giardia Lamblia Not Detected (NOT DETECT); Norovirus GI/GII Not Detected (NOT DETECT); Plesiomonas Shigelloides Not Detected (NOT DETECT); Rotavirus A Not Detected (NOT DETECT); Salmonella Sp Not Detected (NOT DETECT); Sapovirus Not Detected (NOT DETECT); Shiga Toxin-prod E. coli-STEC Not Detected (NOT DETECT); Shigella/Enteroin E. coli-EIEC Not Detected (NOT DETECT); Vibrio Cholerae Not Detected (NOT DETECT); Vibrio Sp Not Detected (NOT DETECT); Yersinia Enterocolitica Not Detected (NOT DETECT)
== END | disposition home or self-care (01) ==
LOC: LAB 13:32 → LAB SHORT 13:32 → LAB FUT 02-16 10:20
PROVIDERS: Student in an Organized Health Care Education/Training Program
DX: R19.7 Diarrhea, unspecified (principal)
CPT/HCPCS: 0097U; 87324